=== PATIENT | male | born 1980 ===

== ENCOUNTER 2020-07-01 16:22 | Emergency (ER) | payer OTHER, SELFPAY ==
[2020-07-01 16:42] VITALS: PULSE 102; RESP 16; TEMP 36.8; O2SAT 98; BMI 21.9
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
== END 2020-07-01 18:22 | disposition home or self-care (01) ==
PROVIDERS: Emergency Provider Internal Medicine
DX: S29.012A Strain of muscle and tendon of back wall of thorax, initial encounter (principal); M54.6 Pain in thoracic spine; V43.52XA Car driver injured in collision with other type car in traffic accident, initial encounter; Y93.9 Activity, unspecified; Y92.410 Unspecified street and highway as the place of occurrence of the external cause; Y99.9 Unspecified external cause status; Z79.899 Other long term (current) drug therapy
CPT/HCPCS: 99283

== ENCOUNTER 2020-07-04 05:04 | Emergency (ER) | payer OTHER, SELFPAY ==
--- NOTE | ~2020-07-04 | XR_ITS ---
EXAMINATION: XR LUMBOSACRAL SPINE CLINICAL INFORMATION: Pain COMPARISON: None TECHNIQUE: Three views of the lumbosacral spine. FINDINGS: The vertebral bodies and posterior elements are normal. The disc spaces are preserved and the vertebral alignment is normal. The paraspinal soft tissues are normal. XR/XR lumbar spine 2-3V IMPRESSION: Unremarkable examination.
[2020-07-04 05:09] VITALS: BP 121/69; PULSE 80; RESP 18; TEMP 36.6; O2SAT 100
[2020-07-04 06:32] VITALS: BP 132/72; PULSE 74; RESP 15; TEMP 36.5; O2SAT 95; BMI 21.9
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
[2020-07-04] MEDS: Ketorolac Tromethamine 30 MG/ML VIAL 60 MG IM (06:50)
== END 2020-07-04 07:29 | disposition home or self-care (01) ==
PROVIDERS: Emergency Provider Emergency Medicine
DX: S39.012A Strain of muscle, fascia and tendon of lower back, initial encounter (principal); V43.52XA Car driver injured in collision with other type car in traffic accident, initial encounter; Y93.9 Activity, unspecified; Y92.410 Unspecified street and highway as the place of occurrence of the external cause; Y99.9 Unspecified external cause status; Z79.899 Other long term (current) drug therapy
CPT/HCPCS: 72100; 96372; 99283; 99284; J1885

== ENCOUNTER 2020-07-08 10:15 | Outpatient (REF) | payer OTHER, SELFPAY ==
[2020-07-08 10:48] LABS: COVID-19 Test Negative (Negative)
== END 2020-07-08 10:16 | disposition home or self-care (01) ==
LOC: HO.LAB 10:15
PROVIDERS: Visit Provider Internal Medicine
DX: Z20.822 Contact with and (suspected) exposure to COVID-19 (principal)
CPT/HCPCS: 36415; 87635; C9803

== ENCOUNTER 2020-11-06 15:16 | Outpatient (REF) | payer OTHER, SELFPAY | END 2020-11-06 15:17 | disposition home or self-care (01) | LOC: HO.LAB 15:16 | PROVIDERS: Visit Provider Internal Medicine | DX: Z20.822 Contact with and (suspected) exposure to COVID-19 (principal) | CPT/HCPCS: C9803; U0003; U0005 ==

== ENCOUNTER 2021-02-04 09:53 | Outpatient (REF) | payer OTHER, SELFPAY ==
[2021-02-04 11:18] LABS: COVID-19 Test Negative (Negative)
== END 2021-02-04 09:54 | disposition home or self-care (01) ==
LOC: HO.LAB 09:53
PROVIDERS: Visit Provider Internal Medicine
DX: Z20.822 Contact with and (suspected) exposure to COVID-19 (principal)
CPT/HCPCS: 36415; 87635; C9803

== ENCOUNTER 2024-05-11 08:37 | Outpatient (AMB) | payer BC, SELFPAY ==
--- NOTE | 2024-05-11 08:40 | A.OFFPC_ITS ---
Vital Signs 05/11/24 08:42 Height 5 ft 6.93 in Weight 155 lb 8 oz BMI 24.4 BP 110/68 Blood Pressure Location Lt brachial Position Sitting Pulse 80 Pulse Source Pulse Oximeter Temp 97.3 F Temp Source Skin Pulse Oximetry (%) 98 Oxygen Delivery Method Room Air Intake Visit Reasons: Establish Care/ Severe back Pain Intake Note: Patient is a new patient here to establish care for wellness visit. Transferring care from unknown. Medical records have not been requested and have not received. 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 Compressor Engineer Required: No Machine Ii Trimmer: Not Required per policy Accompanied by: Self / Same As Patient Allergies No Known Allergies Allergy (Verified 05/11/24 08:54) Tobacco use date assessed: 05/11/24 Dental Screening Dental Screen Date: 05/11/24 Did you have a dental visit in the last 12 months?: No Did you have a dental problem in the last 6 months where you did not have access to dental care?: No Was dental information given to patient?: No HPI Establish Care/ Severe back Pain HPI Details Previous PCP: does have one Last visit: 10-15 years ago Last PE: same Specialist: Went to he ER with stomach pain, they told him to see GI, but he could not go because he did not have a pcp OBGYN:n/a Past medical history: tonsillectomy 20years ago, surgery on elbow [id number] not sure Medications: n/a Family HX: DM -mother, grands parents on both side, mother HAD [place] couple months ago Problem: The patient is a 44-year-old male presenting to establish care Reports that he has not physical about 10-15 years Patient reports that he went to emergency in the past for abdominal pain. Reports that they recommended he follow up with GI but did not have a PCP He reports that he attempted to get a PCP but was told that there was a long wait or they were not taking new patients Reports that after a while he has stopped looking. His concerns are: abdominal pain: goes and come, does not noticed if it is when he eats or after, the pain feels like a needle stick, on both lower abdomen, but it is more on the right side. He reports that it as being going on for couple of years. Denies heart burn, reports that when he goes to the bathroom, his stool is a lot of round balls. He denies diarrhea, reports small amounts of streak of blood on stool onces in a while. Reports that it was bright red with a slimy appearance. Denies pain when he moves his bowels. no n/v, denies fever Lower back pain: reports that he has been dealing with this for a while, the pain is across his lower back. Denies radiation. reports that he does not remember straining or any injuries. but he does do heavy lifting at his job, but he is not sure. reports that he has not taken anything for it. reports some times, he wakes up stiff, like he cannot get up to get out of bed, and after waiting a short period he is able to. right knee: on exam: right knee pain, anteriorly, under patella, medially, reports that last year it was swollen but he did not go the doctor, and the swelling went awayin couple of days right heel pain posterior/bottom: reports that when he stands up for long period, he get a lot of pain. he works 10 hour shifts at work. Reports that his heel pain started like two weeks ago. reports that he did not take any medication for this either. Denies swelling or discoloration to the heel. Discussed with patient about starting meloxicam 15 mg daily for his pain. We will order x-rays to further evaluate. Encouraged the patient to increase fiber in his diet and to increase his fluids intake. SDM: The patient will get fiber gummies OTC, and will increases fluids intake. The patient wants to hold off on any medication for constipation at this time [facility] Medical History (Updated 05/11/24 @ 10:22 by IMELDA Rivera) Right knee pain Lower back pain No known health problems Surgical History (Updated 05/11/24 @ 08:48 by BANDAR Douglas) History of elbow surgery History of tonsillectomy Social History (Updated 07/04/20 @ 06:49 by Stefania Diaz DO) Housing: House Alcohol intake: never Patient Tobacco Use Status: Never used Tobacco e-Cigarette/Vaping Use: Never Used Second Hand Smoke Exposure: No service: No Current occupational status: employed Current occupation: [employer] Cognitive needs: No Hearing needs: No Vision needs: No Questionnaire PHQ-9 Over the last 2 weeks, how often have you been bothered by any of the following problems? 1. Little interest or pleasure in doing things: not at all 2. Feeling down, depressed, or hopeless: not at all 3. Trouble falling or staying asleep, or sleeping too much: several days 4. Feeling tired or having little energy: not at all 5. Poor appetite or overeating: not at all 6. Feeling bad about yourself - or that you are a failure or have let yourself or your family down: not at all 7. Trouble concentrating on things, such as reading the newspaper or watching television: not at all 8. Moving or speaking so slowly that other people could have noticed. Or the opposite - being so fidgety or restless that you have been moving around a lot more than usual: not at all 9. Thoughts that you would be better off or of hurting yourself in some way: not at all Total score: 1 Depression Screening Interpretation: Positive Depression Screening Done: Yes Source: Developed by Drs. Gustavo Pickett, Radha Lucio, Quinn Toribio and colleagues, with an educational dave from [employer]. Thrive Questionnaire Date Thrive assessed: 05/11/24 I am a: Patient What is your living situation today?: I have a steady place to live Within the past 12 months, did the food you bought not last and you didn't have the money to get more?: Never true Within the past 12 months, did you worry whether your food would run out before you got money to buy more?: Never true Do you have trouble paying for medicines?: No Do you have trouble getting transportation to medical appointments?: No Do you have trouble paying your heating and electricity bill?: No Do you have trouble taking care of your child, family member or friend?: No Do you have trouble with day-to-day activities such as bathing, preparing meals, shopping, managing finances, etc.?: No Are you currently unemployed and looking for a job?: No Are you interested in more education?: No Please select the resources that you would like help with: None Currently or been in a relationship where the following occur: I choose not to answer THRIVE Score: 0 AUDIT C Alcohol Use Questionnaire (AUDIT-C) 1. How often do you have a drink containing alcohol?: Never Total Score: 0 DANE-7 AMB Questionnaire DANE-7 Date DANE - 7 assessed: 05/11/24 Feeling nervous, anxious, or on edge: 0 = Not at all Not being able to stop or control worryin = Not at all Worrying too much about different things: 0 = Not at all Trouble relaxin = Not at all Being so restless that it is hard to sit still: 0 = Not at all Becoming easily annoyed or irritable: 0 = Not at all Feeling afraid as if something awful might happen: 0 = Not at all Total DANE-7 score (0-4 normal; 5-9 mild; 10-14 moderate; 15-21 severe): 0 Source: Developed by Drs. Gustavo Pickett, Radha Lucio, Quinn Toribio and colleagues, with an educational dave from [employer]. Review of Systems Const Details: Denies chills, Denies fatigue, Denies fever(s), Denies headache(s) and Denies weakness HEENT Denies change in vision, Denies dizziness, Denies headache(s), Denies hearing loss, Denies nasal congestion, Denies sinus pain, Denies sinus pressure and Denies sore throat Card Denies chest pain, Denies lightheadedness, Denies dyspnea and Denies other (palpitations) Resp Denies cough, Denies dyspnea and Denies wheezing GI See HPI Denies hematuria and Denies dysuria Musc See HPI, Denies numbness and Denies tingling Skin/Breast Denies rash, Denies unusual bruising and Denies wounds Neuro Denies abnormal gait, Denies dizziness, Denies headache(s), Denies memory loss, Denies numbness, Denies Sensory deficit (Neuro), Denies tingling and Denies weakness Psych Denies anxiety, Denies depression and Denies memory loss Endo Denies cold intolerance, Denies fatigue, Denies heat intolerance, Denies polydipsia and Denies polyuria Raoul/Lymph Denies easy bleeding and Denies easy bruising Aller/Immun Denies wheezing Physical exam (Primary Care) Depression Screening Interpretation: Positive Currently or been in a relationship where the following occur: I choose not to answer Const Other: General: no acute distress, well developed, alert and awake Nutritional Appearance: well nourished Orientation/consciousness: patient oriented x3 HENMT Head: Yes normocephalic and Yes atraumatic Mouth: Normal oral and palatal mucosa present and moist mucous membranes Eyes Pupils: Equal, round and reactive pupils present and Pupil accommodation reflex normal EOM: EOMs intact bilaterally Neck Neck: Yes normal visual inspection, Yes no lymphadenopathy and Yes trachea midline Thyroid: Thyroid normal Carotids: no bruits Lymphatic: no lymphadenopathy noted Chest Chest palpation & inspection: normal inspection of the chest Resp Effort & Inspection: normal respiratory effort Auscultation: clear to auscultation bilaterally Cardio Rate: regular rate Rhythm: regular rhythm Heart sounds: S1 normal heart sound present, S2 normal heart sound present, no gallops, no murmurs and no rubs Bruits: no abdominal aortic bruits and no carotid bruits GI Palpation (GI: Pain to palpation in both lower abdomen., abdomen is soft. No hepatosplenomegaly present and No Rebound tenderness present Auscultation: normal bowel sounds General: Yes no CVA tenderness Back/Spine/Pelvis Back: no CVA tenderness Cervical Spine: cervical ROM normal and No Cervical spine tenderness Thoracic/Lumbar Spine: thoraco-lumbar ROM normal, No pain with thoraco-lumbar ROM, No thoracic spinal tenderness and No lumbar spinal tenderness Skin General: warm and dry. Normal skin color. Normal skin turgor Lesions: no lesions Nails: normal Neuro General: patient oriented x3, gait normal Cranial nerves: Yes Equal, round and reactive pupils present Cognition (Neuro): normal cognition Gait exam (Neuro): Normal gait present Extrem General: Yes normal to inspection, No edema and No calf tenderness Psych Appearance: grossly normal Affect: normal affect Attitude: cooperative Thought process: Normal thought process present Coding Level of Care Code New Pt Level 4 (93168) Diagnoses Encounter to establish care with new provider Z76.89 Lower abdominal pain R10.30 Abdominal location: lower abdomen, unspecified Pain of right heel M79.671 Chronic pain of right knee M25.561; G89.29 Chronicity: chronic Chronic bilateral low back pain without sciatica M54.50; G89.29 Chronicity: chronic Back pain laterality: bilateral Sciatica presence: without sciatica Chronic idiopathic constipation K59.04 Constipation type: chronic idiopathic constipation Time Spent (min) 37 Assessment & Plan Assessment & Plan (1) Encounter to establish care with new provider: Code(s): Z76.89 - Persons encountering health services in other specified circumstances Category: Medical Plan: Patient has not have a PCP for about 10-15 years. He has not have any exams or blood work in a while. Labs ordered for the patient to complete as soon as possible and to return in 2 weeks for annual physical (2) Abdominal pain: Code(s): R10.9 - Unspecified abdominal pain Category: Medical Qualifiers: Abdominal location: lower abdomen, unspecified Qualified Code(s): R10.30 - Lower abdominal pain, unspecified Plan: Abdominal pain in both lower quadrants. Reports that his slightly worse on the right side. 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 Reports that he needed a PCP to referred him but was having trouble finding a PCP and he stopped his search. Abdominal x-ray ordered, suspected constipation encourage patient to increase dietary fiber and fluids intake. The patient will purchase fiber gummies OTC. He wants to hold off on any medication for constipation at this time (3) Pain of right heel: Code(s): M79.671 - Pain in right foot Category: Medical Plan: X-ray of right calcaneus ordered (4) Right knee pain: Code(s): M25.561 - Pain in right knee Category: Medical Qualifiers: Chronicity: chronic Qualified Code(s): M25.561 - Pain in right knee; G89.29 - Other chronic pain Plan: Reports pain has been going on for a while. We will get a right knee x-ray to further evaluate (5) Lower back pain: Code(s): M54.50 - Low back pain, unspecified Category: Medical Qualifiers: Chronicity: chronic Back pain laterality: bilateral Sciatica presence: without sciatica Qualified Code(s): M54.50 - Low back pain, unspecified; G89.29 - Other chronic pain Plan: Consider muscle strain. We will try the patient on meloxicam 15 mg daily Lumbar x-ray ordered to further evaluate (6) Constipation: Code(s): K59.00 - Constipation, unspecified Category: Medical Qualifiers: Constipation type: chronic idiopathic constipation Qualified Code(s): K59.04 - Chronic idiopathic constipation Plan: Patient will purchase fiber gummy OTC. Encourage patient to increase fluid intake He wants to hold off on any medication for constipation at this time. An abdominal x-ray was ordered, will advise when resulted Plan Labs ordered the patient to return in 2 weeks for annual physicals. X-rays ordered for further evaluation Orders: Orders XR knee RT 3V Today M25.561 - Pain in right knee Comprehensive [place]. Panel Fast Today Z00.00 - Encounter for general adult medical examination without abnormal findings Lipid Panel Today Z00.00 - Encounter for general adult medical examination without abnormal findings UA CC w/rflx Micro + Cult Today Z00.00 - Encounter for general adult medical examination without abnormal findings Glucose Fasting Today Z00.00 - Encounter for general adult medical examination without abnormal findings XR calcaneus RT min 2V Today M79.671 - Pain in right foot XR lumbar spine 2-3V Today M54.50 - Low back pain, unspecified XR abdomen min 2V Today R10.9 - Unspecified abdominal pain Complete Blood Count Auto Diff Today Z00.00 - Encounter for general adult medical examination without abnormal findings Vitamin D 25-OH Total Today Z00.00 - Encounter for general adult medical examination without abnormal findings TSH reflex Free T4 Today Z00.00 - Encounter for general adult medical examination without abnormal findings Medications: New meloxicam 15 mg PO DAILY 30 tabs 3RF Discontinued acetaminophen (Tylenol Extra Strength) Discontinued Reason: Patient Completed Course 500 mg PO Q6H PRN 20 tabs 0RF pain or fever lidocaine 5% (Lidoderm) leave on most painful area for up to 12 hrs Discontinued Reason: Patient Completed Course 1 patch topical DAILY PRN 30 ea 0RF pain MDD remove after 12 hours naproxen Discontinued Reason: Patient Completed Course 500 mg PO BID 10 days PRN 20 tabs 0RF pain cyclobenzaprine Discontinued Reason: Patient Completed Course 5 mg PO Q8H 5 days PRN 14 tabs 0RF pain (scale score 7-10)
[2024-05-11 08:42] VITALS: BP 110/68; PULSE 80; TEMP 36.3; O2SAT 98; BMI 24.4
== END 2024-05-11 09:43 | disposition home or self-care (01) ==
DX: Z76.89 Persons encountering health services in other specified circumstances (principal); R10.30 Lower abdominal pain, unspecified; M79.671 Pain in right foot; M25.561 Pain in right knee; G89.29 Other chronic pain; M54.50 Low back pain, unspecified; K59.04 Chronic idiopathic constipation

== ENCOUNTER 2024-05-11 08:37 | Outpatient (REF) | payer BC, SELFPAY ==
--- NOTE | ~2024-05-11 | XR_ITS ---
CLINICAL HISTORY: M25.561 - Pain in right knee 3 view right knee Comparison: None Findings: Bones intact. No dislocations. Bipartite patella noted. Mild medial compartment joint space narrowing. No joint effusion. No radiopaque foreign body. IMPRESSION: Mild medial compartment joint space narrowing. No acute process. This document has been electronically signed by: Roscoe Segovia MD on 05/11/2024 13:03:34
--- NOTE | ~2024-05-11 | XR_ITS ---
CLINICAL HISTORY: M79.671 - Pain in right foot 2 view right calcaneus Comparison: None Findings: No fractures or dislocations. No significant arthritic change. No erosions. No radiopaque foreign body. IMPRESSION: 1. No acute findings This document has been electronically signed by: Roscoe Segovia MD on 05/11/2024 13:03:46
--- NOTE | ~2024-05-11 | XR_ITS ---
CLINICAL HISTORY: R10.9 - Unspecified abdominal pain 2 view abdomen Comparison: None Findings: Lung bases unremarkable. No pneumoperitoneum or pneumatosis. Moderate colonic fecal retention. No abnormal calcifications. No acute fractures. IMPRESSION: Moderate colonic fecal retention. No small bowel obstruction or free air. This document has been electronically signed by: Roscoe Segovia MD on 05/11/2024 13:02:47
--- NOTE | ~2024-05-11 | XR_ITS ---
CLINICAL HISTORY: M54.50 - Low back pain, unspecified 3 views lumbar spine Comparison: CR - XR LUMBAR SPINE 2-3V - 07/04/20 06:47 EDT Findings: Normal vertebral body alignment. No acute fractures or dislocation. No significant degenerative change. IMPRESSION: No acute findings. This document has been electronically signed by: Roscoe Segovia MD on 05/11/2024 13:01:51
[2024-05-11 10:13] LABS: MANUAL DIFF FLAG NO
[2024-05-11 10:51] LABS: Appearance Urine Clear; Color Urine Yellow; Glucose Urine UA Negative (Negative); Leukocyte Esterase Urine Negative (Negative); Nitrite Urine Negative (Negative); PH 5.5 (5.0-9.0); Urine Blood Negative (Negative); Urine Ketones Negative (Negative); Urine Protein Negative (Neg-Trace)
[2024-05-11 10:55] LABS: Basophils Percent Auto 0.2 % (0-2); Eosinophils Absolute Auto 0.2 X10*3/uL (0.0-0.4); Eosinophils Percent Auto 2.5 % (0-4); Hematocrit 49.8 % (42.0-52.0); Hemoglobin 16.9 g/dl (14.0-18.0); Imm Gran Abs Auto 0.02 X10*3/uL (0.00-0.03); Imm Gran Pct Auto 0.3 % (0.0-0.4); Lymphocytes Absolute Auto 1.3 X10*3/uL (1.2-4.9); Mean Corpuscular HGB Conc 33.9 g/dl (31.0-36.0); Mean Corpuscular Hemoglobin 28.2 pg (27.0-33.0); Mean Corpuscular Volume 83.1 fL (80.0-98.0); Mean Platelet Volume 9.5 fL (9.4-12.4); Monocytes Absolute Auto 0.4 X10*3/uL (0.1-1.2); Neutrophils Absolute Auto 4.1 x10*3/uL (2.0-8.3); Platelet Count 298 X10*3/uL (160-400); Red Blood Count 5.99 X10*6/uL (4.60-5.80); Red Cell Distribution Width 14.4 % (11.0-16.0)
[2024-05-11 11:58] LABS: Alanine Aminotransferase 89 U/L (0-40); Albumin Level 4.6 g/dL (3.5-5.0); Alkaline Phosphatase 128 U/L (39-117); Anion Gap 12 (12-20); Aspartate Amino Transferase 42 U/L (5-37); Bilirubin Total 1.2 mg/dL (0.0-1.0); Blood Urea Nitrogen 12 mg/dL (9-16); Calcium 9.8 mg/dL (8.4-10.2); Carbon Dioxide 28 mmol/L (22-29); Chloride 106 mmol/L (96-108); Cholesterol 196 mg/dL (<200); Estimated Glomerular Filt Rate > 60; Glucose Fasting 90 mg/dL (60-99); HDL Cholesterol 31 mg/dL (>40); LDL Cholesterol Calculated 123 mg/dL (<100); Potassium 4.6 mmol/L (3.3-5.1); Sodium 141 mmol/L (135-145); Total Protein 8.1 g/dL (6.5-8.0); Triglycerides 211 mg/dL (<150)
[2024-05-11 12:17] LABS: TSH reflex Free T4 1.59 uIU/mL (0.32-4.0)
== END 2024-05-11 08:38 | disposition home or self-care (01) ==
LOC: HO.LAB 08:37
DX: M25.561 Pain in right knee (principal); M54.50 Low back pain, unspecified; R10.9 Unspecified abdominal pain; M79.671 Pain in right foot; Z13.6 Encounter for screening for cardiovascular disorders; K59.04 Chronic idiopathic constipation; R10.30 Lower abdominal pain, unspecified; G89.29 Other chronic pain; Z76.89 Persons encountering health services in other specified circumstances
CPT/HCPCS: 36415; 72100; 73562; 73650; 74019; 80053; 80061; 81003; 82306; 84443; 85025

== ENCOUNTER → 2024-05-11 10:19 | Outpatient (BNV) | payer BC, SELFPAY | PROVIDERS: Visit Provider Radiology Vascular & Interventional Radiology | DX: M25.561 Pain in right knee (principal); M79.671 Pain in right foot; M54.50 Low back pain, unspecified; R10.9 Unspecified abdominal pain; K59.00 Constipation, unspecified | CPT/HCPCS: 72100; 73562; 73650; 74019 ==

== ENCOUNTER 2024-05-25 08:54 | Outpatient (AMB) | payer BC, SELFPAY ==
[2024-05-25 08:58] VITALS: BP 116/80; PULSE 85; O2SAT 97; BMI 24.5
--- NOTE | 2024-05-25 08:58 | MHC.PC.OV ---
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 Required: No Accompanied by: Self / Same As Patient Allergies No Known Allergies Allergy (Verified 05/27/24 20:07) Medication List - Last Reconciled 05/27/24 by IMELDA Rivera atorvastatin 10 mg PO BEDTIME cholecalciferol (vitamin D3) 50 mcg PO DAILY 90 days meloxicam 15 mg PO DAILY Tobacco use date assessed: 05/25/24 Dental Screening Dental Screen Date: 05/25/24 Did you have a dental visit in the last 12 months?: No Did you have a dental problem in the last 6 months where you did not have access to dental care?: No Was dental information given to patient?: No HPI Annual Exam HPI Details Dentist: none in 2 years Eye: no exam, encouraged the patient to make an appt Snellen: Right: Left: Corrected vision: reports that he was prescribed glasses in the past STI screening:n/a Colonoscopy:n/a Pap Smer:n/a PHQ-9:n/a Flu: up to date COVID: x2-no boosters Tdap: recommend--shot in office today Diet: regular Exercise: play basketball The patient is a 43-year-old male was presenting for annual physical Preventative guidelines and recent labs reviewed with patient [facility] Medical History (Updated 05/25/24 @ 09:46 by IMELDA Rivera) Right knee pain Lower back pain No known health problems Surgical History History of elbow surgery History of tonsillectomy Social History Housing: House Alcohol intake: never Patient Tobacco Use Status: Never used Tobacco e-Cigarette/Vaping Use: Never Used Second Hand Smoke Exposure: No service: No Current occupational status: employed Current occupation: [employer] Cognitive needs: No Hearing needs: No Vision needs: No Questionnaire PHQ-9 Over the last 2 weeks, how often have you been bothered by any of the following problems? 1. Little interest or pleasure in doing things: not at all 2. Feeling down, depressed, or hopeless: not at all 3. Trouble falling or staying asleep, or sleeping too much: several days 4. Feeling tired or having little energy: not at all 5. Poor appetite or overeating: not at all 6. Feeling bad about yourself - or that you are a failure or have let yourself or your family down: not at all 7. Trouble concentrating on things, such as reading the newspaper or watching television: not at all 8. Moving or speaking so slowly that other people could have noticed. Or the opposite - being so fidgety or restless that you have been moving around a lot more than usual: not at all 9. Thoughts that you would be better off or of hurting yourself in some way: not at all Total score: 1 Depression Screening Interpretation: Positive Depression Screening Done: Yes Source: Developed by Drs. Gustavo Pickett, Radha Lucio, Quinn Toribio and colleagues, with an educational dave from [employer]. Thrive Questionnaire Date Thrive assessed: 05/25/24 I am a: Patient What is your living situation today?: I have a steady place to live Within the past 12 months, did the food you bought not last and you didn't have the money to get more?: Never true Within the past 12 months, did you worry whether your food would run out before you got money to buy more?: Never true Do you have trouble paying for medicines?: No Do you have trouble getting transportation to medical appointments?: No Do you have trouble paying your heating and electricity bill?: No Do you have trouble taking care of your child, family member or friend?: No Do you have trouble with day-to-day activities such as bathing, preparing meals, shopping, managing finances, etc.?: No Are you currently unemployed and looking for a job?: No Are you interested in more education?: No Please select the resources that you would like help with: None Currently or been in a relationship where the following occur: I choose not to answer THRIVE Score: 0 AUDIT C Alcohol Use Questionnaire (AUDIT-C) 1. How often do you have a drink containing alcohol?: Never 3. How often do you have six or more drinks on one occasion?: Never Total Score: 0 DAEN-7 AMB Questionnaire DANE-7 Date DANE - 7 assessed: 05/25/24 Feeling nervous, anxious, or on edge: 0 = Not at all Not being able to stop or control worryin = Not at all Worrying too much about different things: 0 = Not at all Trouble relaxin = Not at all Being so restless that it is hard to sit still: 0 = Not at all Becoming easily annoyed or irritable: 0 = Not at all Feeling afraid as if something awful might happen: 0 = Not at all Total DANE-7 score (0-4 normal; 5-9 mild; 10-14 moderate; 15-21 severe): 0 Source: Developed by Drs. Gustavo Pickett, Radha Lucio, Quinn Toribio and colleagues, with an educational dave from [employer]. Review of Systems Const Details: Denies chills, Denies fatigue, Denies fever(s), Denies headache(s) and Denies weakness HEENT Denies change in vision, Denies dizziness, Denies headache(s), Denies hearing loss, Denies nasal congestion, Denies sinus pain, Denies sinus pressure and Denies sore throat Card Denies chest pain, Denies lightheadedness, Denies dyspnea and Denies other (palpitations) Resp Denies cough, Denies dyspnea and Denies wheezing GI Denies abdominal pain, Denies melena, Denies hematochezia, Denies change in bowel habits, +dyspepsia and Denies nausea Denies hematuria and Denies dysuria Musc Denies abnormal gait, Denies myalgias, +arthralgias (right knee, heel and lower back pain), Denies numbness and Denies tingling Skin/Breast Denies rash, Denies unusual bruising and Denies wounds Neuro Denies abnormal gait, Denies dizziness, Denies headache(s), Denies memory loss, Denies numbness, Denies Sensory deficit (Neuro), Denies tingling and Denies weakness Psych Denies anxiety, Denies depression and Denies memory loss Endo Denies cold intolerance, Denies fatigue, Denies heat intolerance, Denies polydipsia and Denies polyuria Raoul/Lymph Denies easy bleeding and Denies easy bruising Aller/Immun Denies wheezing Physical exam (Primary Care) Vital Signs: Last Vital Signs Pulse 85 05/25/24 08:58 BP 116/80 05/25/24 08:58 Pulse Ox 97 05/25/24 08:58 Oxygen Delivery Method Room Air 05/25/24 08:58 BMI result Body Mass Index 24.5 Tobacco/Smoking Status: Tobacco use Status Tobacco use date assessed 05/25/24 05/25/24 09:04 Patient Tobacco Use Status Never used Tobacco 05/25/24 09:04 e-Cigarette/Vaping Use Never Used 05/25/24 09:04 PHQ-9: PHQ-9 Score PHQ-9: Total score 1 05/25/24 09:56 Depression Screening Interpretation: Positive Thrive Assessment: Date of Thrive Assessment Date Thrive assessed 05/25/24 05/25/24 09:04 Currently or been in a relationship where the following occur: I choose not to answer Const Other: General: no acute distress, well developed, alert and awake Nutritional Appearance: well nourished Orientation/consciousness: patient oriented x3 HENMT Head: Yes normocephalic and Yes atraumatic Ears: hearing grossly normal bilaterally and TM's normal bilaterally General nose exam: Normal external nose present and Normal nares present Mouth: Normal oral and palatal mucosa present and moist mucous membranes Teeth and gingiva: dentition normal Throat: Yes oropharynx normal Eyes Pupils: Equal, round and reactive pupils present and Pupil accommodation reflex normal EOM: EOMs intact bilaterally Neck Neck: Yes normal visual inspection, Yes no lymphadenopathy and Yes trachea midline Thyroid: Thyroid normal Carotids: no bruits Lymphatic: no lymphadenopathy noted Chest Chest palpation & inspection: normal inspection of the chest Resp Effort & Inspection: normal respiratory effort Auscultation: clear to auscultation bilaterally Cardio Rate: regular rate Rhythm: regular rhythm Heart sounds: S1 normal heart sound present, S2 normal heart sound present, no gallops, no murmurs and no rubs Bruits: no abdominal aortic bruits and no carotid bruits GI Palpation (GI): No Abdominal aortic bruit present, Soft to palpation, nontender, No hepatosplenomegaly present and No Rebound tenderness present Auscultation: normal bowel sounds General: Yes no CVA tenderness Back/Spine/Pelvis Back: no CVA tenderness Cervical Spine: cervical ROM normal and No Cervical spine tenderness Thoracic/Lumbar Spine: thoraco-lumbar ROM normal, No pain with thoraco-lumbar ROM, No thoracic spinal tenderness and No lumbar spinal tenderness Skin General: warm and dry. Normal skin color. Normal skin turgor Lesions: no lesions Rashes: no rashes Trauma: no lacerations or abrasions Wounds: no wounds Nails: normal Neuro General: patient oriented x3, gait normal and CN's II-XI intact bilaterally Cranial nerves: Yes Equal, round and reactive pupils present Cognition (Neuro): normal cognition Gait exam (Neuro): Normal gait present Motor exam (neuro): 5/5 motor strength present throughout Sensory Exam: No Sensory deficit (Neuro) Deep tendon reflexes (DTR's): Right patellar reflex intensity grade: 2+ and Left patellar reflex intensity grade: 2+ Extrem General: Yes normal to inspection, No edema and No calf tenderness Psych Appearance: grossly normal Affect: normal affect Attitude: cooperative Thought process: Normal thought process present Immunizations Boostrix Tdap 2.5 Lf unit-8 mcg-5 Lf/0.5 mL intramuscular syringe Performing Provider: IMELDA Rivera Performing Location: [facility] [place] [facility] Administered by: BANDAR Khan on 05/25/24 09:56 Dose Route Admin Location Dispensed Lot Number Expiration Date [facility] 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 Instructor 0.5 mL IM Left Deltoid 0.5 mL [id number] 07/14/26 [id number] [employer] VIS Given Date VIS Provided VIS Publication Date 05/25/24 Single Vaccine 20 Eligibility Eligibility Date Funding Source Not [facility] Eligible 05/25/24 Private Results Reviewed Results Reviewed: Laboratory Tests 05/11/24 05/11/24 10:08 10:12 WBC 6.0 RBC 5.99 H Hgb 16.9 Hct 49.8 Plt Count 298 Sodium 141 Potassium 4.6 Chloride 106 Carbon Dioxide 28 BUN 12 Creatinine 0.97 Estimated GFR > 60 Fasting Glucose 90 Calcium 9.8 AST 42 H ALT 89 H Alkaline Phosphatase 128 H Triglycerides 211 H LDL Cholesterol, Calc 123 H HDL Cholesterol 31 L 25-OH Vitamin D Total 14.0 L TSH 1.59 Urine Color Yellow Urine Appearance Clear Urine pH 5.5 Ur Specific [place] 1.020 Urine Protein Negative Urine Glucose (UA) Negative Urine Ketones Negative Urine Blood Negative Urine Nitrite Negative Ur Leukocyte Esterase Negative Coding Level of Care Code Est Pt Prev Care 40-64y([id number]) Diagnoses Annual physical exam Z00.00 Elevated liver enzymes R74.8 Vitamin D deficiency E55.9 Elevated cholesterol with elevated triglycerides E78.2 Lower abdominal pain R10.30 Abdominal location: lower abdomen, unspecified Pain of right heel M79.671 Chronic pain of right knee M25.561; G89.29 Chronicity: chronic Chronic bilateral low back pain without sciatica M54.50; G89.29 Chronicity: chronic Back pain laterality: bilateral Sciatica presence: without sciatica Chronic idiopathic constipation K59.04 Constipation type: chronic idiopathic constipation Time Spent (min) 39 Assessment & Plan Assessment & Plan (1) Annual physical exam: Code(s): Z00.00 - Encounter for general adult medical examination without abnormal findings Category: Medical Plan: Preventative guidelines recent labs/imagings were reviewed with patient. Tetanus shot was given in office today (2) Elevated liver enzymes: Code(s): R74.8 - Abnormal levels of other serum enzymes Category: Medical Plan: Elevated liver enzymes. Discussed with the patient about dietary modification because this is probably due to his high cholesterol Refrain from alcohol intake and medications containing acetaminophen (3) Vitamin D deficiency: Code(s): E55.9 - Vitamin D deficiency, unspecified Category: Medical Plan: Cholecalciferol 50 mcg ordered We will check labs in 3 months (4) Elevated cholesterol with elevated triglycerides: Code(s): E78.2 - Mixed hyperlipidemia Category: Medical Plan: Reinforced a diet low in cholesterol Atorvastatin 10 mg ordered at bedtime We will recheck lipid panel in three-month (5) Abdominal pain: Code(s): R10.9 - Unspecified abdominal pain Category: Medical Qualifiers: Abdominal location: lower abdomen, unspecified Qualified Code(s): R10.30 - Lower abdominal pain, unspecified Plan: Abdominal pain in both lower quadrants. Reports that his slightly worse on the right side. Reports that he went to the ER for this already and was told to see a channeler runner. Reports that he needed a PCP to referred him but was having trouble finding a PCP and he stopped his search. Abdominal x-ray ordered, suspected constipation encourage patient to increase dietary fiber and fluids intake. The patient will purchase fiber gummies OTC. He wants to hold off on any medication for constipation at this time (6) Pain of right heel: Code(s): M79.671 - Pain in right foot Category: Medical Plan: X-ray of right calcaneus showed acute findings (7) Right knee pain: Code(s): M25.561 - Pain in right knee Category: Medical Qualifiers: Chronicity: chronic Qualified Code(s): M25.561 - Pain in right knee; G89.29 - Other chronic pain Plan: Reports pain has been going on for a while. right knee xray showed mild medial compartment joint space narrowing. No acute process continue meloxicam 15 mg daily (8) Lower back pain: Code(s): M54.50 - Low back pain, unspecified Category: Medical Qualifiers: Chronicity: chronic Back pain laterality: bilateral Sciatica presence: without sciatica Qualified Code(s): M54.50 - Low back pain, unspecified; G89.29 - Other chronic pain Plan: Consider muscle strain Lumbar x-ray showed no acute findings continue meloxicam 15 mg daily (9) Constipation: Code(s): K59.00 - Constipation, unspecified Category: Medical Qualifiers: Constipation type: chronic idiopathic constipation Qualified Code(s): K59.04 - Chronic idiopathic constipation Plan: Patient will purchase fiber gummy OTC. Encourage patient to increase fluid intake He wants to hold off on any medication for constipation at this time. An abdominal x-ray showed Moderate colonic fecal retention. No small bowel obstruction or free air. Plan The patient return in 3 months for hld/elevated livers. Consider sending the patient to GI if liver enzymes not improving Orders: Orders Vitamin D 25-OH Total 3 Months E55.9 - Vitamin D deficiency, unspecified, E78.2 - Mixed hyperlipidemia, R74.8 - Abnormal levels of other serum enzymes Lipid Panel 3 Months E55.9 - Vitamin D deficiency, unspecified, E78.2 - Mixed hyperlipidemia, R74.8 - Abnormal levels of other serum enzymes Comprehensive [place]. Panel Fast 3 Months E55.9 - Vitamin D deficiency, unspecified, E78.2 - Mixed hyperlipidemia, R74.8 - Abnormal levels of other serum enzymes Complete Blood Count Auto Diff 3 Months E55.9 - Vitamin D deficiency, unspecified, E78.2 - Mixed hyperlipidemia, R74.8 - Abnormal levels of other serum enzymes Glucose Fasting 3 Months E55.9 - Vitamin D deficiency, unspecified, E78.2 - Mixed hyperlipidemia, R74.8 - Abnormal levels of other serum enzymes TDaP Immunization 05/25/24 Z23 - Encounter for immunization Medications: New cholecalciferol (vitamin D3) 50 mcg PO DAILY 90 days 90 caps 3RF E55.9 - Vitamin D deficiency, unspecified atorvastatin 10 mg PO BEDTIME 90 tabs 2RF E78.2 - Mixed hyperlipidemia
== END 2024-05-25 10:03 | disposition home or self-care (01) ==
DX: Z23 Encounter for immunization (principal)

== ENCOUNTER → 2024-05-25 08:54 | Outpatient (BNVA) | payer BC, SELFPAY | DX: Z00.00 Encounter for general adult medical examination without abnormal findings (principal); Z23 Encounter for immunization; R74.8 Abnormal levels of other serum enzymes; E55.9 Vitamin D deficiency, unspecified; E78.2 Mixed hyperlipidemia; R10.30 Lower abdominal pain, unspecified; M79.671 Pain in right foot; G89.29 Other chronic pain; M25.561 Pain in right knee; M54.50 Low back pain, unspecified; K59.04 Chronic idiopathic constipation; Z79.899 Other long term (current) drug therapy | CPT/HCPCS: 90471; 90715; 96127 ==

== ENCOUNTER 2024-08-02 07:58 | Emergency (ER) | payer BC, SELFPAY ==
[2024-08-02 08:02] VITALS: BP 116/66; PULSE 75; RESP 16; TEMP 36.3; O2SAT 99; BMI 24.8
[2024-08-02 08:11] VITALS: BP 122/72; PULSE 81; RESP 15; O2SAT 99
--- NOTE | 2024-08-02 08:19 | ED.GENADULT ---
HPI - General Adult General Chief complaint: Extremity Injury, Lower Stated complaint: Back pain, leg pain Time Seen by Provider: 08/02/24 08:18 Source: patient Mode of arrival: ambulatory Limitations: no limitations History of Present Illness ED Provider: Linda Maloney PA-C HPI narrative: Patient is a 44 year old assigned male at with a history of chronic knee pain and chronic low back pain presenting to the emergency department today with acute on chronic low back and right knee pain. Patient states that he has had pain in his right knee and his low back for years. Patient states that he attempted to be evaluated for these pains in our orthopedic office after receiving x-rays in the ER when the office told him his PCP had to refer him. Patient states that his knee and back have been more sore as of lately but he denies any known trauma to the area. Patient denies any dizziness, lightheadedness, abdominal pain, nausea, vomiting, fever, chills, blurry vision, double vision, loss of vision, chest pain, difficulty breathing, shortness of breath, night sweats, pain with urination, increased urinary frequency, increased urinary urgency, blood in his urine or stool, syncope or a near syncopal episode, bowel incontinence, bladder incontinence, or any other complaints at this time. Relieving factors: none Exacerbating factors: none Associated symptoms: denies other symptoms Treatments prior to arrival: none Related Data Previous Rx's ?Medication ?Instructions ?Recorded meloxicam 15 mg tablet 15 mg PO DAILY #30 tabs 05/11/24 atorvastatin 10 mg tablet 10 mg PO BEDTIME #90 tabs 05/25/24 cholecalciferol (vitamin D3) 50 50 mcg PO DAILY 90 days #90 caps 05/25/24 mcg (2,000 unit) capsule cyclobenzaprine 5 mg tablet 5 mg PO TID PRN muscle spasm 7 08/02/24 days #21 tabs prednisone 20 mg tablet 20 mg PO DAILY 7 days #7 tabs 08/02/24 Allergies Allergy/AdvReac Type Severity Reaction Status Date / Time No Known Allergies Allergy Verified 08/02/24 08:02 Review of Systems Constitutional: Constitutional: Reports no additional constitutional complaints, Denies chills, Denies fever(s) and Denies night sweats Eyes: Eyes: Reports no additional eye complaints, Denies blurry vision, Denies change in vision, Denies diplopia, Denies eye discharge, Denies loss of vision and Denies eye pain ENT: Denies dizziness Cardiovascular: Cardiovascular: Reports no additional cardiovascular complaints, Denies chest pain, Denies lightheadedness, Denies Loss of Consciousness and Denies dyspnea Respiratory: Respiratory: Reports no additional respiratory complaints and Denies dyspnea Gastrointestinal: Gastrointestinal: Reports no additional gastrointestinal complaints, Denies abdominal pain, Denies melena, Denies hematochezia, Denies change in bowel habits and Denies change in stool character Genitourinary: Genitourinary: Reports no additional male genitourinary complaints, Denies hematuria, Denies oliguria, Denies difficulty urinating, Denies dysuria, Denies urinary frequency, Denies urinary hesitancy, Denies urinary incontinence and Denies urinary urgency Musculoskeletal: Musculoskeletal: Reports no additional musculoskeletal complaints, Reports back pain, Denies numbness and Denies tingling Comments: right knee pain Neurologic: Denies dizziness, Denies loss of vision, Denies numbness and Denies tingling Psychiatric: Psychiatric: Reports no additional psychiatric complaints Endocrine: Endocrine: Reports no additional endocrine complaints Hematologic/Lymphatic: Hematologic/Lymphatic: Reports no additional hematologic/lymphatic complaints Allergic/Immunologic: Allergic/Immunologic: Reports no additional allergic/immunologic complaints PMF Past Medical History Attestation statement: The following information was validated with the patient. Source: old records reviewed and nursing notes reviewed Medical History Right knee pain Lower back pain No known health problems Surgical History History of elbow surgery History of tonsillectomy Social History Social History Housing: House Alcohol intake: never Patient Tobacco Use Status: Never used Tobacco e-Cigarette/Vaping Use: Never Used Second Hand Smoke Exposure: No service: No Current occupational status: employed Current occupation: [employer] Cognitive needs: No Hearing needs: No Vision needs: No Physical Exam ED Vital Signs: Vital Signs - 24 hr 08/02/24 08:02 08/02/24 08:11 08/02/24 08:30 Temperature 97.3 F 98.6 F Pulse Rate 75 81 72 Respiratory Rate 16 15 15 Blood Pressure 116/66 122/72 105/74 Pulse Oximetry 99 99 98 Oxygen Delivery Method Room Air Room Air Room Air 08/02/24 08:53 Temperature 98.6 F Pulse Rate 72 Respiratory Rate 15 Blood Pressure 105/74 Pulse Oximetry 98 Oxygen Delivery Method Room Air BMI result Body Mass Index 24.8 Const General: cooperative, no acute distress, alert and awake Nutritional Appearance: well nourished Orientation/consciousness: patient oriented x3 HENMT Head: Yes normal to inspection and Yes atraumatic Ears: hearing grossly normal bilaterally and external ears normal General nose exam: Normal external nose present, no nasal discharge noted and no epistaxis Face and sinus: Yes normal facial exam, No abrasion and No laceration Mouth: Normal oral and palatal mucosa present, no drooling and no muffled voice Eyes General: appearance normal, both eyes and all related structures Periorbital: periorbital findings normal Eyelids: Yes eyelids normal Conjunctivae: conjunctivae normal Pupils: Equal, round and reactive pupils present EOM: EOMs intact bilaterally Neck Neck: Yes normal visual inspection, Yes full ROM and Yes no lymphadenopathy Resp Effort & Inspection: normal respiratory effort and able to speak in complete sentences Neuro General: patient oriented x3, moves all extremities and CN's II-XI intact bilaterally Cranial nerves: Yes Equal, round and reactive pupils present Cognition (Neuro): normal cognition Extrem General: Yes normal to inspection, Yes full ROM and Yes capillary refill normal Psych Appearance: grossly normal Mental Status: mental status grossly normal Affect: normal affect Attitude: cooperative Thought process: Normal thought process present Thought content: Normal thought content present Insight: Good insight present (Psych) Medications Administered Discontinued Medications Generic Name Dose Route Start Last Admin Trade Name Joel PRN Reason Stop Dose Admin Cyclobenzaprine HCl 5 mg 08/02/24 08:23 08/02/24 08:53 Cyclobenzaprine Hcl 5 Mg Tablet PO 08/02/24 08:24 Not Given ONCE ONE Ketorolac Tromethamine 15 mg 08/02/24 08:23 08/02/24 08:39 Ketorolac Tromethamine 15 Mg/Ml Vial IM 08/02/24 08:24 15 mg ONCE ONE Administration Prednisone 20 mg 08/02/24 08:23 08/02/24 08:39 Prednisone 20 Mg Tablet PO 08/02/24 08:24 20 mg ONCE ONE Administration Medical Decision Making Medical Decision Making MDM Narrative: Patient is a 44 year old assigned male at with a history of chronic knee pain and chronic low back pain presenting to the emergency department today with acute on chronic low back and right knee pain. Patient's physical exam was unremarkable. Patient's clinical presentation is most consistent with acute on chronic right knee pain and low back pain. I explained my physical exam findings to the patient. I answered all questions asked by the patient. I stressed the importance of the patient taking his medication as directed (either prescribed or as the over the counter packaging recommends). I stressed the importance of the patient following up with his primary care provider and the orthopedic team. I stressed the importance of the patient returning to the emergency department immediately if his symptoms were to worsen or if he were to develop any dizziness, shortness of breath, difficulty breathing, chest pain, blurry vision, loss of vision, nausea, vomiting, abdominal pain, fever, chills, back pain, or any other complaints. Patient verbalized agreement and understanding with this treatment plan and discharge. Differential Diagnosis Differential Diagnoses: The differential diagnosis associated with the presentation includes Low back pain Right knee pain Chronic pain Admission/Observation Consideration of admission/observation: Escalation of care including admission/observation considered Patient would have been admitted to the hospital had his clinical presentation warranted hospital admission. Tests considered The following testing was considered but not selected: I considered obtaining imaging of the lumbar spine and right knee (x-ray vs. CT) however, the patient's current clinical presentation did not warrant this. I discussed this with the patient who verbalized understanding and agreement. Prescription Management I considered prescription management with: Pain Medication (patient prescribed pain medicine) Discharge Plan Discharge Clinical Impression: Chronic knee pain, Low back pain Patient Disposition: Home, Self-Care Instructions: Chronic Pain (ED), Acute Low Back Pain (ED), Knee Pain (ED) Additional Instructions: Follow up with your primary care provider and the orthopedic team for your right knee and low back pain. Return to the emergency department immediately if your symptoms worsen or if you develop any numbness, tingling, dizziness, shortness of breath, difficulty breathing, chest pain, blurry vision, loss of vision, nausea, vomiting, abdominal pain, fever, chills, back pain, or any other complaints. Please see the information below about our Patient Portal. If you are not yet enrolled in the [facility] Patient Portal, you will receive an enrollment email invitation following your visit to any [facility] [place] [place] care setting. You may also self-enroll in the Patient Portal by visiting our website: [email or web address] The following information is required to access the Patient Portal: - Your [facility] [place] Medical Record Number - Your personal home email address (must match what is in your electronic medical record, Registration staff can assist with this) - Name - Date of Capabilities of the Patient Portal: - Message some providers - View upcoming appointments - Access your health summary, medical history, and visit history - View current conditions and allergies - View procedure and lab results - View your medications, including guidelines, side effects, and precautions - Complete pre-appointment questionnaires requested by your provider - Ready summary reports of your office visits and procedures To access the Patient Portal Mobile [employer], follow these directions: - Search [employer] in the [employer] Store or expresscoin Store - Download the [employer] - Search for [facility] - Enter your login/password Prescriptions: New cyclobenzaprine 5 mg tablet 5 mg PO TID PRN (Reason: muscle spasm) 7 Days Qty: 21 0RF prednisone 20 mg tablet 20 mg PO DAILY 7 Days Qty: 7 0RF No Action meloxicam 15 mg tablet 15 mg PO DAILY Qty: 30 3RF cholecalciferol (vitamin D3) 50 mcg (2,000 unit) capsule 50 mcg PO DAILY 90 Days Qty: 90 3RF atorvastatin 10 mg tablet 10 mg PO BEDTIME Qty: 90 2RF Referrals: [facility] [place] Orthopedic Surgeons [Provider Group] (Call to establish and follow up with the orthopedic team. ) Héctor Gold FNP-C [Primary Care Provider] - Stand Alone Forms: Work/School Release Interventions: ED Discharge Assessment Last Done: 08/02/24 08:53 Discharge Date/Time: 08/02/24 08:55 Print Language: Belgian
[2024-08-02 08:30] VITALS: BP 105/74; PULSE 72; RESP 15; TEMP 37; O2SAT 98
[2024-08-02] MEDS: Ketorolac Tromethamine 15 MG/ML VIAL IM (08:39)
[2024-08-02] MEDS: predniSONE 20 MG TABLET PO (08:39)
--- NOTE | 2024-08-02 08:48 | PC.NURSE ---
PT A&O X4 VSS [id number] all [id number] well, denies numbness or tingling or bladdr bowel incontinence. Does not want flexeril bc he is driving- will take at home. No complaints other than initial. No change. [id number] understanding of DC instructions. no questions.
[2024-08-02 08:53] VITALS: BP 105/74; PULSE 72; RESP 15; TEMP 37; O2SAT 98
== END 2024-08-02 08:55 | disposition home or self-care (01) ==
PROVIDERS: Emergency Provider Emergency Medicine Emergency Medical Services
DX: G89.29 Other chronic pain (principal); M25.561 Pain in right knee; M54.50 Low back pain, unspecified
CPT/HCPCS: 96372; 99284; J1885

== ENCOUNTER 2024-08-28 11:21 | Outpatient (REF) | payer BC, SELFPAY ==
[2024-08-28 11:30] LABS: MANUAL DIFF FLAG NO
[2024-08-28 12:05] LABS: Basophils Percent Auto 0.2 % (0-2); Eosinophils Absolute Auto 0.2 X10*3/uL (0.0-0.4); Eosinophils Percent Auto 4.1 % (0-4); Hematocrit 44.4 % (42.0-52.0); Hemoglobin 15.6 g/dl (14.0-18.0); Imm Gran Abs Auto 0.01 X10*3/uL (0.00-0.03); Imm Gran Pct Auto 0.2 % (0.0-0.4); Lymphocytes Absolute Auto 1.4 X10*3/uL (1.2-4.9); Lymphocytes Percent Auto 25.3 % (20-40); Mean Corpuscular HGB Conc 35.1 g/dl (31.0-36.0); Mean Corpuscular Hemoglobin 28.7 pg (27.0-33.0); Mean Corpuscular Volume 81.8 fL (80.0-98.0); Mean Platelet Volume 9.5 fL (9.4-12.4); Monocytes Absolute Auto 0.4 X10*3/uL (0.1-1.2); Monocytes Percent Auto 7.4 % (2-11); Neutrophils Absolute Auto 3.4 x10*3/uL (2.0-8.3); Neutrophils Percent Auto 62.8 % (45-73); Platelet Count 245 X10*3/uL (160-400); Red Blood Count 5.43 X10*6/uL (4.60-5.80); Red Cell Distribution Width 13.9 % (11.0-16.0); White Blood Count 5.4 X10*3/uL (4.8-10.8)
[2024-08-28 12:53] LABS: Alanine Aminotransferase 126 U/L (0-40); Albumin Level 4.4 g/dL (3.5-5.0); Alkaline Phosphatase 119 U/L (39-117); Anion Gap 9 (12-20); Aspartate Amino Transferase 49 U/L (5-37); Blood Urea Nitrogen 10 mg/dL (9-16); Calcium 9.3 mg/dL (8.4-10.2); Carbon Dioxide 29 mmol/L (22-29); Chloride 107 mmol/L (96-108); Cholesterol 166 mg/dL (<200); Estimated Glomerular Filt Rate > 60; Glucose Fasting 86 mg/dL (60-99); HDL Cholesterol 29 mg/dL (>40); LDL Cholesterol Calculated 101 mg/dL (<100); Potassium 3.7 mmol/L (3.3-5.1); Sodium 141 mmol/L (135-145); Triglycerides 183 mg/dL (<150)
[2024-08-28 13:00] LABS: Vitamin D 25-OH Total 39.5 ng/mL (>30)
== END 2024-08-28 11:22 | disposition home or self-care (01) ==
LOC: HO.LAB 11:21
DX: E78.2 Mixed hyperlipidemia (principal); E55.9 Vitamin D deficiency, unspecified; R74.8 Abnormal levels of other serum enzymes
CPT/HCPCS: 36415; 80053; 80061; 82306; 85025

== ENCOUNTER 2024-08-28 14:42 | Outpatient (AMB) | payer BC, SELFPAY ==
[2024-08-28 14:59] VITALS: BP 122/64; PULSE 82; RESP 18; TEMP 36.9; O2SAT 99; BMI 24.7
--- NOTE | 2024-08-28 14:59 | MHC.PC.OV ---
Vital Signs 08/28/24 14:59 Height 5 ft 7 in Weight 158 lb BMI 24.7 BP 122/64 Blood Pressure Location Lt brachial Position Sitting Respiration 18 Pulse 82 Pulse Source Pulse Oximeter Temp 98.5 F Temp Source Oral Pulse Oximetry (%) 99 Oxygen Delivery Method Room Air Intake Visit Reasons: ED [facility] back [place] Intake Note: Patient is here to follow-up after a visit the emergency department at [facility] in [place], [place] on 08/02/2024. [employer] Operator Required: No Accompanied by: Self / Same As Patient Allergies No Known Allergies Allergy (Verified 08/31/24 11:24) Medication List - Last Reconciled 08/28/24 by IMELDA Rivera atorvastatin 10 mg PO BEDTIME cholecalciferol (vitamin D3) 50 mcg PO DAILY 90 days cyclobenzaprine 5 mg PO TID PRN 7 days meloxicam 15 mg PO DAILY Tobacco use date assessed: 08/28/24 Dental Screening Dental Screen Date: 08/28/24 Did you have a dental visit in the last 12 months?: No Did you have a dental problem in the last 6 months where you did not have access to dental care?: No Was dental information given to patient?: No HPI ED [facility] back [place] HPI Details The patient is a 44-year-old male presenting with persistent back and knee pain. Chronic back pain has been affecting the patient's life since . He describes this pain as chronic without radiation into the legs, causing significant morning discomfort and worsened by activity. The patient indicates a recent concern regarding knee pain, which ensues after extended periods of ambulation, correlating with observed mild medial compartment joint space narrowing on recent imaging. Past treatment endeavors have faced obstacles, notably delays related to insurance authorizations required for advanced imaging. The patient is scheduled for an orthopedic evaluation to address the knee pain and explore management. The patient also reports a familial tendency to avoid amplifying medical conditions due to apprehensions concerning health within his family. Reports that he is really concern about his back that has been causing him pain. Moderate to severe pain that he as been dealing with for a while. In past, he did not report the symptoms because he did not want anyone to worry about him. After seeing multiple family members being diagnosed with cancer and other serious illnesses, he would like to be evaluate to rule out any serious conditions. Recently went to the hospital for his back and knee pain in order to get more answers. Instead, no further testing/imaging was completed. The patient is requesting a MRI to further evaluate his lower back pain. Given that his back pain has been going on for years and does not seems to be getting better, instead has worsen to the point of debilitation and extreme worriedness. [facility], [facility] Medical History Right knee pain Lower back pain No known health problems Surgical History History of elbow surgery History of tonsillectomy Social History Housing: House Alcohol intake: never Patient Tobacco Use Status: Never used Tobacco e-Cigarette/Vaping Use: Never Used Second Hand Smoke Exposure: No service: No Current occupational status: employed Current occupation: [employer] Cognitive needs: No Hearing needs: No Vision needs: No Questionnaire PHQ-9 Over the last 2 weeks, how often have you been bothered by any of the following problems? 1. Little interest or pleasure in doing things: not at all 2. Feeling down, depressed, or hopeless: not at all 3. Trouble falling or staying asleep, or sleeping too much: not at all 4. Feeling tired or having little energy: several days 5. Poor appetite or overeating: not at all 6. Feeling bad about yourself - or that you are a failure or have let yourself or your family down: not at all 7. Trouble concentrating on things, such as reading the newspaper or watching television: not at all 8. Moving or speaking so slowly that other people could have noticed. Or the opposite - being so fidgety or restless that you have been moving around a lot more than usual: not at all 9. Thoughts that you would be better off or of hurting yourself in some way: not at all Total score: 1 Depression Screening Interpretation: Negative Depression Screening Done: Yes Source: Developed by Drs. Gustavo Pickett, Radha Lucio, Quinn Toribio and colleagues, with an educational dave from [employer]. Thrive Questionnaire Date Thrive assessed: 08/28/24 I am a: Patient What is your living situation today?: I have a steady place to live Within the past 12 months, did the food you bought not last and you didn't have the money to get more?: Never true Within the past 12 months, did you worry whether your food would run out before you got money to buy more?: Never true Do you have trouble paying for medicines?: No Do you have trouble getting transportation to medical appointments?: No Do you have trouble paying your heating and electricity bill?: No Do you have trouble taking care of your child, family member or friend?: No Do you have trouble with day-to-day activities such as bathing, preparing meals, shopping, managing finances, etc.?: No Are you currently unemployed and looking for a job?: No Are you interested in more education?: No Please select the resources that you would like help with: None Currently or been in a relationship where the following occur: I choose not to answer THRIVE Score: 0 AUDIT C Alcohol Use Questionnaire (AUDIT-C) 1. How often do you have a drink containing alcohol?: Never Total Score: 0 Score Reviewed/Action Taken: No DANE-7 AMB Questionnaire DANE-7 Date DANE - 7 assessed: 08/28/24 Feeling nervous, anxious, or on edge: 0 = Not at all Not being able to stop or control worryin = Not at all Worrying too much about different things: 0 = Not at all Trouble relaxin = Not at all Being so restless that it is hard to sit still: 0 = Not at all Becoming easily annoyed or irritable: 0 = Not at all Feeling afraid as if something awful might happen: 0 = Not at all Total DANE-7 score (0-4 normal; 5-9 mild; 10-14 moderate; 15-21 severe): 0 Source: Developed by Drs. Gustavo Pickett, Radha Lucio, Quinn Toribio and colleagues, with an educational dave from [employer]. Review of Systems Const Denies headache(s) Eyes Denies loss of vision ENT Denies vertigo, Denies dizziness, Denies headache(s) and Denies sore throat Card Denies chest pain, Denies leg edema and Denies lightheadedness Resp Denies cough, Denies hemoptysis and Denies wheezing GI Reports abdominal pain (intermittently), Denies melena, Denies constipation, Denies diarrhea and Denies vomiting Denies dysuria, Denies urinary frequency and Denies urinary urgency Musc Reports back pain (extreme achiness in lower back-worsen with activity), Reports arthralgias (right knee), Denies joint swelling, Denies numbness and Denies tingling Neuro Denies Abnormal speech present, Denies vertigo, Denies dizziness, Denies headache(s), Denies loss of vision, Denies numbness and Denies tingling Raoul/Lymph Denies easy bleeding and Denies easy bruising Aller/Immun Denies wheezing Physical exam (Primary Care) Vital Signs: Last Vital Signs Temp 98.5 F 08/28/24 14:59 Pulse 82 08/28/24 14:59 Resp 18 08/28/24 14:59 BP 122/64 08/28/24 14:59 Pulse Ox 99 08/28/24 14:59 Oxygen Delivery Method Room Air 08/28/24 14:59 BMI result Body Mass Index 24.7 Tobacco/Smoking Status: Tobacco use Status Tobacco use date assessed 08/28/24 08/28/24 15:10 Patient Tobacco Use Status Never used Tobacco 08/28/24 14:59 e-Cigarette/Vaping Use Never Used 08/28/24 14:59 PHQ-9: PHQ-9 Score PHQ-9: Total score 1 08/28/24 15:56 Depression Screening Interpretation: Negative Thrive Assessment: Date of Thrive Assessment Date Thrive assessed 08/28/24 08/28/24 15:10 Currently or been in a relationship where the following occur: I choose not to answer Const General: healthy appearing, no acute distress, alert and awake Nutritional Appearance: well nourished Orientation/consciousness: oriented to person, oriented to place and oriented to time HENMT Ears: external ears normal General nose exam: Normal external nose present Eyes Conjunctivae: conjunctivae normal Sclerae: sclerae normal Pupils: Equal, round and reactive pupils present Neck Neck: Yes no lymphadenopathy and Yes no JVD Thyroid: Thyroid normal Carotids: no bruits Resp Effort & Inspection: normal respiratory effort and not tachypneic Auscultation: no crackles, no rales, no rhonchi and no wheezes Cardio Rate: regular rate Rhythm: regular rhythm Heart sounds: no murmurs and normal S1 and S2 GI Palpation (GI): Soft to palpation, Tenderness to palpation present (GI) (diffused), no hepatomegaly and no splenomegaly Auscultation: normal bowel sounds General: Yes no CVA tenderness Back/Spine/Pelvis Back: no CVA tenderness Thoracic/Lumbar Spine: No lumbar spinal tenderness Neuro General: oriented to person, oriented to place and oriented to time Cranial nerves: Yes Equal, round and reactive pupils present Speech: No Abnormal speech present Gait exam (Neuro): Normal gait present Motor exam (neuro): no tremor noted Extrem Right upper extremity: full ROM Left upper extremity: full ROM Right lower extremity: full ROM and knee Details: no tenderness and no swelling; no edema Left lower extremity: full ROM; no edema Psych Mental Status: mental status grossly normal Speech and movement: Normal speech and movement present Affect: normal affect Attitude: cooperative Thought process: Normal thought process present Coding Level of Care Code Est Pt Level 3 (02772) Diagnoses Chronic bilateral low back pain without sciatica M54.50; G89.29 Chronicity: chronic Back pain laterality: bilateral Sciatica presence: without sciatica Chronic pain of right knee M25.561; G89.29 Chronicity: chronic Time Spent (min) 36 Assessment & Plan Assessment & Plan (1) Lower back pain: Code(s): M54.50 - Low back pain, unspecified Category: Medical Qualifiers: Chronicity: chronic Back pain laterality: bilateral Sciatica presence: without sciatica Qualified Code(s): M54.50 - Low back pain, unspecified; G89.29 - Other chronic pain Plan: The patient s/p ER visit for lower back pain, he was given ketorolac 15 mg IM and prednisone 20 mg once. Patient was referred to Orthopedics and has an appointment on 12/07/2024. The patient evaluation for his low back pain started on 05/11/2024 at that time he was started on meloxicam 15 mg daily and cyclobenzaprine 5 mg t.i.d. p.r.n.. Patient is adamantly requesting an MRI due to unrelenting lower back pain. Made the patient aware that this might not be coverage and it is best to start with PT first. He would like the order be placed anyway. PT evaluation was ordered as well. (2) Right knee pain: Code(s): M25.561 - Pain in right knee Category: Medical Qualifiers: Chronicity: chronic Qualified Code(s): M25.561 - Pain in right knee; G89.29 - Other chronic pain Plan: Right knee pain ongoing as well. He has a sooner date to see orthopedic for this condition (10/23/24). PT evaluation was ordered as well. Orders: Orders MR lumbar spine wo con Today G89.29 - Other chronic pain, M54.50 - Low back pain, unspecified PT Evaluation and Treatment 08/28/24 G89.29 - Other chronic pain, M25.561 - Pain in right knee, M54.50 - Low back pain, unspecified
== END 2024-08-28 16:03 | disposition home or self-care (01) ==
LOC: HO.HMCH 14:43
DX: M54.50 Low back pain, unspecified (principal); G89.29 Other chronic pain; M25.561 Pain in right knee

== ENCOUNTER 2024-08-31 10:44 | Outpatient (AMB) | payer BC, SELFPAY ==
[2024-08-31 10:51] VITALS: BP 108/74; PULSE 74; RESP 16; TEMP 36.9; O2SAT 98; BMI 24.7
--- NOTE | 2024-08-31 10:51 | A.OFFPC_ITS ---
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 Accompanied by: Self / Same As Patient Allergies No Known Allergies Allergy (Verified 08/31/24 11:24) Medication List - Last Reconciled 08/31/24 by IMELDA Rivera atorvastatin 10 mg PO BEDTIME cholecalciferol (vitamin D3) 50 mcg PO DAILY 90 days cyclobenzaprine 5 mg PO TID PRN 7 days meloxicam 15 mg PO DAILY Tobacco use date assessed: 08/31/24 Dental Screening Dental Screen Date: 08/31/24 Did you have a dental visit in the last 12 months?: No Did you have a dental problem in the last 6 months where you did not have access to dental care?: No Was dental information given to patient?: No HPI HLD/liver enzymes/vit d deficiency HPI Details The patient is a 44-year-old male presenting with elevated liver enzymes and abdominal pain. The liver enzymes have shown a progressive increase despite abstinence from alcohol and tobacco. Hypercholesterolemia, including sl ightly elevated LDL cholesterol, has been managed with atorvastatin, but this medication is currently paused to assess its impact on liver enzyme elevation. Triglyceride levels are high, with dietary measures suggested to increase HDL cholesterol, recorded at 29 mg/dL. The patient reports abdominal pain predominantly on the left side, which occurs intermittently after meals, but at times he feels the pain all over his abdomen and occasional heartburn episodes. Constipation has been acknowledged as a causal factor, supported by x-ray findings of moderate fecal retention. Current management includes the use of fiber supplements. Additionally, the patient has a history of Vitamin D deficiency currently being treated with supplements. 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 Cognitive needs: No Hearing needs: No Vision needs: No Questionnaire Thrive Questionnaire Date Thrive assessed: 08/31/24 I am a: Patient What is your living situation today?: I have a steady place to live Within the past 12 months, did the food you bought not last and you didn't have the money to get more?: Never true Within the past 12 months, did you worry whether your food would run out before you got money to buy more?: Never true Do you have trouble paying for medicines?: No Do you have trouble getting transportation to medical appointments?: No Do you have trouble paying your heating and electricity bill?: No Do you have trouble taking care of your child, family member or friend?: No Do you have trouble with day-to-day activities such as bathing, preparing meals, shopping, managing finances, etc.?: No Are you currently unemployed and looking for a job?: No Are you interested in more education?: No Please select the resources that you would like help with: None Currently or been in a relationship where the following occur: I choose not to answer THRIVE Score: 0 AUDIT C Alcohol Use Questionnaire (AUDIT-C) 1. How often do you have a drink containing alcohol?: Never 3. How often do you have six or more drinks on one occasion?: Never Total Score: 0 Score Reviewed/Action Taken: No DANE-7 AMB Questionnaire DANE-7 Date DANE - 7 assessed: 08/28/24 Source: Developed by Drs. Gustavo Pickett, Radha Lucio, Quinn Toribio and colleagues, with an educational dave from [email or web address]. Review of Systems Const Denies headache(s) Eyes Denies loss of vision ENT Denies vertigo, Denies dizziness, Denies headache(s) and Denies sore throat Card Denies chest pain, Denies leg edema and Denies lightheadedness Resp Denies cough, Denies hemoptysis and Denies wheezing GI Reports abdominal pain (mostly on the left side, but diffused intermittently), Denies melena, Denies constipation, Denies diarrhea and Denies vomiting Denies dysuria, Denies urinary frequency and Denies urinary urgency Neuro Denies Abnormal speech present, Denies vertigo, Denies dizziness, Denies headache(s) and Denies loss of vision Raoul/Lymph Denies easy bleeding and Denies easy bruising Aller/Immun Denies wheezing Physical exam (Primary Care) Vital Signs: Last Vital Signs Temp 98.4 F 08/31/24 10:51 Pulse 74 08/31/24 10:51 Resp 16 08/31/24 10:51 BP 108/74 08/31/24 10:51 Pulse Ox 98 08/31/24 10:51 Oxygen Delivery Method Room Air 08/31/24 10:51 BMI result Body Mass Index 24.7 Tobacco/Smoking Status: Tobacco use Status Tobacco use date assessed 08/31/24 08/31/24 10:58 Patient Tobacco Use Status Never used Tobacco 08/31/24 10:58 e-Cigarette/Vaping Use Never Used 08/31/24 10:58 Thrive Assessment: Date of Thrive Assessment Date Thrive assessed 08/31/24 08/31/24 10:58 Currently or been in a relationship where the following occur: I choose not to answer Const General: healthy appearing, no acute distress, alert and awake Nutritional Appearance: well nourished Orientation/consciousness: oriented to person, oriented to place and oriented to time HENMT Ears: external ears normal General nose exam: Normal external nose present Eyes Conjunctivae: conjunctivae normal Sclerae: sclerae normal Pupils: Equal, round and reactive pupils present Neck Neck: Yes no lymphadenopathy Thyroid: Thyroid normal Carotids: no bruits Resp Effort & Inspection: normal respiratory effort and not tachypneic Auscultation: no crackles, no rales, no rhonchi and no wheezes Cardio Rate: regular rate Rhythm: regular rhythm Heart sounds: no murmurs and normal S1 and S2 GI Palpation (GI): Soft to palpation, Tenderness to palpation present (GI) (diffused), no hepatomegaly and no splenomegaly Auscultation: normal bowel sounds General: Yes no CVA tenderness Back/Spine/Pelvis Back: no CVA tenderness Neuro General: oriented to person, oriented to place and oriented to time Cranial nerves: Yes Equal, round and reactive pupils present Speech: No Abnormal speech present Gait exam (Neuro): Normal gait present Motor exam (neuro): no tremor noted Extrem Right upper extremity: full ROM Left upper extremity: full ROM Right lower extremity: full ROM; no edema Left lower extremity: full ROM; no edema Results Reviewed Results Reviewed: Laboratory Tests 05/11/24 08/28/24 10:08 11:29 WBC 5.4 RBC 5.43 Hgb 15.6 Hct 44.4 MCV 81.8 MCH 28.7 MCHC 35.1 RDW 13.9 Plt Count 245 MPV 9.5 Sodium 141 Potassium 3.7 Chloride 107 Carbon Dioxide 29 Anion Gap 9 L BUN 10 Creatinine 0.98 Estimated GFR > 60 Fasting Glucose 86 Calcium 9.3 Total Bilirubin 1.0 AST 49 H ALT 126 H Alkaline Phosphatase 119 H Total Protein 7.0 Albumin 4.4 Triglycerides 183 H Cholesterol 166 LDL Cholesterol, Calc 101 H HDL Cholesterol 29 L 25-OH Vitamin D Total 39.5 Urine Color Yellow Urine Appearance Clear Urine pH 5.5 Ur Specific Champion 1.020 Urine Protein Negative Urine Glucose (UA) Negative Urine Ketones Negative Urine Blood Negative Urine Nitrite Negative Ur Leukocyte Esterase Negative Coding Level of Care Code Est Pt Level 3 (36441) Diagnoses Elevated liver enzymes R74.8 Vitamin D deficiency E55.9 Elevated cholesterol with elevated triglycerides E78.2 Chronic idiopathic constipation K59.04 Constipation type: chronic idiopathic constipation Time Spent (min) 34 Assessment & Plan Assessment & Plan (1) Elevated liver enzymes: Code(s): R74.8 - Abnormal levels of other serum enzymes Category: Medical (2) Vitamin D deficiency: Code(s): E55.9 - Vitamin D deficiency, unspecified Category: Medical (3) Elevated cholesterol with elevated triglycerides: Code(s): E78.2 - Mixed hyperlipidemia Category: Medical (4) Constipation: Code(s): K59.00 - Constipation, unspecified Category: Medical Qualifiers: Constipation type: chronic idiopathic constipation Qualified Code(s): K59.04 - Chronic idiopathic constipation Plan We have adjusted the management plan by pausing atorvastatin to investigate its effect on liver enzymes and scheduling an urgent abdominal ultrasound. The patient is to fast before the liver panel. Fiber supplements for constipation and omega-3 for low HDL cholesterol are advised, with a follow-up scheduled in three months to review these interventions' impact. Reinforced low cholesterol diet and activity as tolerated. Avoid alcohol and Tylenol containing products. The urgency of the abdominal ultrasound was communicated, and steps for lab evaluation were provided. Additionally, addressing elevated triglycerides and Vitamin D deficiency continues to be part of the care plan. Patient was informed and verbally consented to the use of an ambient scribe for clinic note documentation during this visit. Orders: Orders US abdomen complete Today R10.30 - Lower abdominal pain, unspecified, R74.8 - A bnormal levels of other serum enzymes Complete Blood Count Auto Diff 3 Months E55.9 - Vitamin D deficiency, unspecified, E78.2 - Mixed hyperlipidemia, G89.29 - Other chronic pain, K59.04 - Chronic idiopathic constipation, M25.561 - Pain in right knee, M54.50 - Low back pain, unspecified, R74.8 - Abnormal levels of other serum enzymes UA CC w/rflx Micro + Cult 3 Months E55.9 - Vitamin D deficiency, unspecified, E78.2 - Mixed hyperlipidemia, G89.29 - Other chronic pain, K59.04 - Chronic idiopathic constipation, M25.561 - Pain in right knee, M54.50 - Low back pain, unspecified, R74.8 - Abnormal levels of other serum enzymes Liver Panel Today R10.30 - Lower abdominal pain, unspecified, R74.8 - Abnormal levels of other serum enzymes Comprehensive [place]. Panel Fast 3 Months E55.9 - Vitamin D deficiency, unspecified, E78.2 - Mixed hyperlipidemia, G89.29 - Other chronic pain, K59.04 - Chronic idiopathic constipation, M25.561 - Pain in right knee, M54.50 - Low back pain, unspecified, R74.8 - Abnormal levels of other serum enzymes Lipid Panel 3 Months E55.9 - Vitamin D deficiency, unspecified, E78.2 - Mixed hyperlipidemia, G89.29 - Other chronic pain, K59.04 - Chronic idiopathic constipation, M25.561 - Pain in right knee, M54.50 - Low back pain, unspecified, R74.8 - Abnormal levels of other serum enzymes TSH reflex Free T4 3 Months E55.9 - Vitamin D deficiency, unspecified, E78.2 - Mixed hyperlipidemia, G89.29 - Other chronic pain, K59.04 - Chronic idiopathic constipation, M25.561 - Pain in right knee, M54.50 - Low back pain, unspecified, R74.8 - Abnormal levels of other serum enzymes Vitamin D 25-OH Total 3 Months E55.9 - Vitamin D deficiency, unspecified, E78.2 - Mixed hyperlipidemia, G89.29 - Other chronic pain, K59.04 - Chronic idiopathic constipation, M25.561 - Pain in right knee, M54.50 - Low back pain, unspecified, R74.8 - Abnormal levels of other serum enzymes
== END 2024-08-31 11:47 | disposition home or self-care (01) ==
LOC: HO.HMCH 10:44
DX: R74.8 Abnormal levels of other serum enzymes (principal); E55.9 Vitamin D deficiency, unspecified; E78.2 Mixed hyperlipidemia; K59.04 Chronic idiopathic constipation

== ENCOUNTER 2024-09-07 08:14 | Outpatient (REF) | payer BC, SELFPAY ==
[2024-09-07 09:18] LABS: Alanine Aminotransferase 77 U/L (0-40); Albumin Level 4.5 g/dL (3.5-5.0); Alkaline Phosphatase 108 U/L (39-117); Aspartate Amino Transferase 41 U/L (5-37); Bilirubin Direct 0.4 mg/dL (0.0-0.5); Bilirubin Total 1.3 mg/dL (0.0-1.0); Glucose Fasting 91 mg/dL (60-99); Total Protein 7.3 g/dL (6.5-8.0)
== END 2024-09-07 08:15 | disposition home or self-care (01) ==
LOC: HO.LAB 08:14
DX: Z00.00 Encounter for general adult medical examination without abnormal findings (principal); Z13.1 Encounter for screening for diabetes mellitus; R74.8 Abnormal levels of other serum enzymes; R10.30 Lower abdominal pain, unspecified
CPT/HCPCS: 36415; 80076; 82947

== ENCOUNTER 2024-09-10 09:46 | Outpatient (REF) | payer BC, SELFPAY ==
--- NOTE | ~2024-09-10 | US_ITS ---
CLINICAL HISTORY: R74.8 - Abnormal levels of other serum enzymes --- Additional Notes or Special Inst ructions: Diffuse abdominal pain US abdomen complete Comparison: None Findings: The visualized pancreas is normal. The aorta and inferior vena cava are normal caliber. The liver is normal in size and echotexture. There is no intrahepatic bile duct dilatation. The common duct is 2 mm in diameter. The gallbladder is normal. There is no sonographic Gregorio sign. The main portal vein is antegrade. The right kidney is 10.1 cm in length. The left kidney is 10.0 cm in length. No hydronephrosis of either kidney. Normal cortical thickness and echotexture. The spleen is normal. No ascites. IMPRESSION: 1. Normal complete abdominal ultrasound. This document has been electronically signed by: Cayetano Rocha MD on 09/11/2024 01:29:27
== END 2024-09-10 09:47 | disposition home or self-care (01) ==
LOC: HO.HMGCX 09:46
DX: R74.8 Abnormal levels of other serum enzymes (principal); R10.30 Lower abdominal pain, unspecified
CPT/HCPCS: 76700

== ENCOUNTER → 2024-09-10 09:50 | Outpatient (BNV) | payer BC, SELFPAY | PROVIDERS: Visit Provider Radiology Diagnostic Radiology | DX: R74.8 Abnormal levels of other serum enzymes (principal) | CPT/HCPCS: 76700 ==

== ENCOUNTER 2024-10-23 10:16 | Outpatient (AMB) | payer BC, SELFPAY ==
--- NOTE | 2024-10-23 10:47 | A.OFFVIS_ITS ---
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 Patient states ongoing pain for more than 5 year. He states when he is going to stand up he loses his balance which happens frequently. Patient states that his pain is on the lateral aspect of the knee. He states that his pain is worse when he is standing for long period of time. No history of injections or physical therapy. Patient hasn't tried any medications to help with the pain. IMPRESSION: Mild medial compartment joint space narrowing. No acute process. 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 Yudith Ellison is a 44-year-old male who presents to the office today for chronic waxing and waning right knee pain. Reports that the pain has been present for more than 5 years. He reports that he has occasional giving out. This has been happening more frequently. The location of the pain is along the lateral aspect of the knee. Pain worsens with standing for long periods of time. He has not followed up or been seen by an orthopedist due to not having a PCP to place a referral. He recently establish himself with a PCP and is working on addressing all of his medical concerns. 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 No ecchymosis, erythema, or joint effusion. No tenderness to palpation along the medial or lateral joint lines. Full knee extension and flexion. Negative Soraya's. Negative anterior drawer. NVI. Assessment & Plan Assessment & Plan (1) Internal derangement of right knee: Code(s): M23.91 - Unspecified internal derangement of right knee Category: Medical Plan Mr. Yudith Ellison is a 44-year-old male who presents to the office today for chronic waxing and waning right knee pain. Reports that the pain has been present for more than 5 years. He reports that he has occasional giving out. This has been happening more frequently. The location of the pain is along the lateral aspect of the knee. Pain worsens with standing for long periods of time. He has not followed up or been seen by an orthopedist due to not having a PCP to place a referral. He recently establish himself with a PCP and is working on addressing all of his medical concerns. While the office today, x-rays were obtained and reviewed with the patient revealing mild medial compartment arthritic change edges. His knee exam is benign at this time and he is not experiencing any pain. I educated the patient that should his pain return he can contact our office and we can discuss conservative treatment options such as cortisone injection and/or physical therapy. Patient understands and accepts. He will follow up PRN, sooner if needed. X-rays of the right knee which were obtained while in the office today and were reviewed by me, Lorena Powell PA-C, revealed mild arthritic changes medial compartment. Coding Level of Care Code New Pt Level 3 (23917) Diagnoses Internal derangement of right knee M23.91
[2024-10-23 10:51] VITALS: BMI 22.7
== END 2024-10-23 11:09 | disposition home or self-care (01) ==
LOC: HO.HOS 10:16
PROVIDERS: Visit Provider Physician Assistant
DX: M23.91 Unspecified internal derangement of right knee (principal)
CPT/HCPCS: 99203